=== PATIENT | female | born 1990 | race African-American/Black ===

== ENCOUNTER 2016-10-04 23:12 | Emergency (ER) | payer MEDICAID, OTHER ==
[~2016-10-04] VITALS: Ht 167.6 cm; Wt 83.0 kg
[~2016-10-04 23:12] MED LIST: CYCL-319 PO; FERR-55 PO; FOLI1POW MC; IBUP-1542 PO; PNV1CAPS17; PREN1TAB31 PO
[2016-10-04 23:14] VITALS: Ht 167.6 cm; Wt 83.0 kg
[2016-10-04] MEDS ORDERED: GENT5DRO28 RIGHT EYE (23:54)
[2016-10-05] MEDS ORDERED: TETRACAINE 0.5% 4 ML OPH RIGHT EYE ONE
[2016-10-05] MEDS ORDERED: FLUORESCEIN STRIP RIGHT EYE ONE
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
== END 2016-10-05 00:11 | disposition home or self-care (01) ==
LOC: FTE 23:12
DX: S05.01XA Injury of conjunctiva and corneal abrasion without foreign body, right eye, initial encounter (principal); S05.91XA Unspecified injury of right eye and orbit, initial encounter; X58.XXXA Exposure to other specified factors, initial encounter; Y92.9 Unspecified place or not applicable
CPT/HCPCS: Z7610 ×2; 99283

== ENCOUNTER 2017-03-01 08:36 | Emergency (ER) | payer OTHER ==
[~2017-03-01] VITALS: Ht 170.2 cm; Wt 79.0 kg
[~2017-03-01 08:36] MED LIST changes: +GENT5DRO28 RIGHT EYE
[2017-03-01 08:44] VITALS: Ht 170.2 cm; Wt 79.0 kg
[2017-03-01] MEDS ORDERED: ONDANSETRON (ODT) 4 MG TAB ODT STA (09:03)
[2017-03-01] MEDS ORDERED: KETOROLAC 30 MG INJ IM STA (09:04)
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
[2017-03-01] MEDS ORDERED: ONDA4TAB14 PO (09:37)
[2017-03-01] MEDS ORDERED: IBUP-1542 PO (09:37)
[2017-03-01] MEDS ORDERED: AZIT500T3 PO (09:37)
== END 2017-03-01 10:17 | disposition home or self-care (01) ==
LOC: FTE 08:36
DX: M54.2 Cervicalgia (principal); R11.2 Nausea with vomiting, unspecified; R19.7 Diarrhea, unspecified
CPT/HCPCS: 96372; J1885; Z7502; Z7610

== ENCOUNTER 2018-02-15 11:26 | Emergency (ER) | END 2018-02-15 14:57 | disposition left against medical advice (07) ==